=== PATIENT | female | born 1985 | race Asian ===

== ENCOUNTER → 2017-03-17 | Outpatient (CLI) | payer BC | LOC: FIMAGING 11:59 | PROVIDERS: ATTEND Obstetrics & Gynecology | DX: O09.812 Supervision of pregnancy resulting from assisted reproductive technology, second trimester (principal); Z3A.25 25 weeks gestation of pregnancy ==

== ENCOUNTER 2017-06-17 20:01 | Inpatient (IN) | payer BC ==
[2017-06-17] MEDS ORDERED: ACETAMINOPHEN 325 MG TAB PO PRN (21:22)
[2017-06-17] MEDS ORDERED: CALCIUM CARBONATE 500 MG CHEWABLE TAB PO PRN (21:22)
[2017-06-17 22:01] LABS: % IMMATURE GRANULYOCYTES 0.7 % (0.0-1.1); ADD DIFF? NO; ADD MORPH? NO; ADD SCAN? NO; ATYPICAL LYMPHOCYTE FLAG 10 (0-99); FRAGMENT RBC FLAG 10 (0-99); HEMATOCRIT 35.7 % (38.0-47.0); HEMOGLOBIN 12.1 g/dL (12.6-16.3); LEFT SHIFT FLG 0 (0-99); LIPEMIA HEMOLYSIS FLAG 90 (0-99); MEAN CELL HEMOGLOBIN 30.8 pg (27.9-34.1); MEAN CELL HEMOGLOBIN CONCENTR. 33.9 g/dL (32.4-36.7); MEAN CELL VOLUME 90.8 fL (81.5-99.8); MEAN PLATELET VOLUME 9.3 fL (8.7-11.7); PLATELET CLUMPS FLAG 0 (0-99); PLATELET COUNT 298 10^3/uL (150-400); RED BLOOD CELL COUNT 3.93 10^6/uL (4.18-5.33)
[2017-06-17 22:26] LABS: ALANINE AMINOTRANSFERASE 26 IU/L (9-52); ASPARTATE AMINOTRANSFERASE 14 IU/L (14-46); CREATININE 0.5 mg/dL (0.6-1.0); GLOMERULAR FILTRATION RATE > 60; LACTATE DEHYDROGENASE 343 IU/L (313-618); URIC ACID 4.7 mg/dL (2.5-6.8)
[2017-06-17] MEDS ORDERED: OLIVE OIL 118 ML BTL MISC PRN (22:42)
[2017-06-17] MEDS ORDERED: EPSOM SALT 454 GM TP PRN (22:42)
[2017-06-17] MEDS ORDERED: TERBUTALINE SULFATE 1 MG/ML VIAL IV PRN (22:42)
[2017-06-17] MEDS ORDERED: LIDOCAINE 1% 300 MG/30 ML SDV ONE (22:54)
[2017-06-17] MEDS ORDERED: OLIVE OIL 118 ML BTL ONE (22:55)
[2017-06-17] MEDS ORDERED: AMMONIA AROMATIC 1 EACH AMP IH ONE (22:55)
[2017-06-17] MEDS ORDERED: TERBUTALINE SULFATE 1 MG/ML VIAL ONE (22:55)
[2017-06-17] MEDS ORDERED: MISOPROSTOL 200 MCG TAB ONE (22:56)
[2017-06-17] MEDS ORDERED: OXYTOCIN 10 UNIT/ML VIAL ONE (22:56)
[2017-06-17] MEDS ORDERED: PHENYLEPHRINE HCL 100 MCG/ML SYR ONE (23:02)
[2017-06-17] MEDS ORDERED: fentaNYL 2MCG/ML/BUP 0.1% RTU 100 ML BAG EP ONE (23:02)
[2017-06-17] MEDS: LR 1,000 ML IV PRN ×2 (23:02→23:53)
[2017-06-17] MEDS ORDERED: ONDANSETRON 4 MG/2 ML VIAL IVP PRN (23:31)
[2017-06-17] MEDS ORDERED: fentaNYL 2MCG/ML/BUP 0.1% RTU 100 ML EP SCH (23:45)
[2017-06-17] MEDS ORDERED: LR 500 ML IV SCH (23:45)
[2017-06-18] MEDS: OXYTOCIN/RINGERS LACTATE 1,000 ML IV PRN ×2 (04:36→06:29)
--- NOTE | 2017-06-18 05:28 | PDGENHP ---
History and Physical History and Physical: LABOR ADMISSION - HISTORY & PHYSICAL EXAM DATE OF ADMISSION: 06/17/2017 HISTORY OF PRESENT ILLNESS: 31 yo G1 @ 37.6 presented with painful contractions since late afternoon. She denied loss of fluid or decreased movement. She was 1cm/75%/-2 earlier today (in clinic) and had a similar cervical exam upon presentation. She was monitored for a few hours and due to some isolated elevated BPs, PIH labs were obtained. After 2-3 hrs of monitoring cervix was 3cm and less posterior. Epidural was ordered. Once patient was comfortable s/p epidural analgesia her BPs normalized. PIH labs were normal and urine dip showed only trace protein. Patient's is complicated by IVF embryo transfer (on 10-14-16), h/o endometriosis and resultant bilateral salpingectomy ( which led to IVF). course has been otherwise uncomplicated. MEDICAL HISTORY: See HPI, h/o endometriosis, bilateral hydrosalpinx, chronic pelvic pain; Anxiety. CURRENT MEDICATIONS: PNV, Fish Oil SURGICAL HISTORY: [place] teeth extraction; Laparoscopic chromotubation, fulguration of endometriosis, and bilateral salpingectomy (05/2016); IVF embryo transfer (10/14/16) ALLERGIES: None SOCIAL HISTORY: , non-smoker, denies ETOH or illicit drug use during . FAMILY MEDICAL HISTORY: Mother (breast cancer, +BRCA gene) OBSTETRICAL/GYNECOLOGIC HISTORY: See Med/Surg Hx REVIEW OF SYSTEMS: GENERAL: Denies generalized faintness or fatigue HENT: Denies headache, vision changes, sore throat PULM: Denies cough, shortness of breath CV: Denies palpitations, chest pain GI: Denies nausea, vomiting, diarrhea, constipation : Denies dysuria, vaginal bleeding, vaginal discharge, movement MSK: Denies significant swelling in extremities SKIN: Denies rash, or new lesion NEURO: Denies numbness, weakness, tingling PSYCH: Denies significant mood changes PHYSICAL EXAM: VITALS: Reviewed: single isolated systolic BP >140, diastolic BP >80; afebrile GENERAL APPEARANCE: Alert & oriented x 3 HENT: Normocephalic, atraumatic, supple HEART: RRR, no M/R/G LUNGS: CTAB, no wheezes, no rhonchi ABDOMEN: Gravid, non-distended, non-tender PELVIC EXAM: RN performed intake cervical exam ASSESSMENT: 140s, Cat I TOCO: Reg ctx q 2 min PLACENTA: Posterior, Grade 2 Placenta LABS: O+ / Antibody Screen Negative / Rubella Low Immune / GBS Negative / HBsAg Negative / HIV Negative / CF Neg, Frag X Neg, SMA Positive ( Neg) / cfDNA (Neg 12/10/16) / 1Hr GTT 121 ASSESSMENT: 31 yo G1 female @ 37.6 weeks in labor. PLAN: 1. Labor - s/p epidural, expectant management, monitor labor progress. 2. Rubella Low Immunity: PP MMR Vaccine
[2017-06-18] MEDS: PHENYLEPHRINE HCL 100 MCG/ML SYR IVP PRN ×6 (06:14→06:56)
[2017-06-18] MEDS: LR 1,000 ML IV PRN (06:15)
--- NOTE | 2017-06-18 06:52 | SOAPPROG ---
SOAP Progress Note Assessment/Plan: Assessment: Plan: Subjective: I was called in to assist dr haley with a vaginal repair. when I arrived the patient was comfortable with an epidural. I assessed the vagina. Bilateral vaginal sulcus lacerations were noted and a second degree. this was repaired with 3-0 vicryl bilateral periurethral lacerations were noted. A red rubber catheter was placed to clearly identify the urethra. repair of lacerations was done. patient is slightly hypotensive and received phenylephrine. will check a h and h. bleeding is minimal. fundus is firm. will monitor patient closely. Objective: Laboratory Results 06/17/17 21:25 06/17/17 21:25 ICD10 Worksheet Patient Problems: Problems Problem Status Onset High vaginal laceration during and after labor Acute Obstetric vaginal laceration Acute (spontaneous vaginal delivery) Acute
[2017-06-18] MEDS ORDERED: SIMETHICONE 80 MG TAB CHEW PO PRN (06:56)
[2017-06-18] MEDS ORDERED: HYDROCORTISONE 0.5% CREAM TP PRN (06:56)
[2017-06-18] MEDS ORDERED: OXYTOCIN/RINGERS LACTATE 1,000 ML IV SCH (07:00)
--- NOTE | 2017-06-18 07:08 | OBDEL ---
Info Type: Vaginal Presentation at Delivery: Vertex L&D Analgesia/Anesthesia Type: Epidural GBS+: No Intrapartum Medications: Generic Name Dose Route Start Last Admin Trade Name Freq PRN Reason Stop Dose Admin Acetaminophen 650 mg 06/17/17 21:22 06/17/17 21:45 Tylenol PO 12/14/17 21:21 650 mg Q4HRS PRN Administration Pain, Mild/Fever, Can Take PO Lactated Ringer's 1,000 mls @ 0 mls/hr 06/17/17 22:42 06/18/17 06:15 Lr IV 12/14/17 22:41 1,000 mls PRN PRN Administration SEE PROTOCOL CONDITIONS Protocol Per Protocol Phenylephrine HCl 100 mcg 06/17/17 23:31 06/18/17 06:56 Neosynephrine IVP 12/14/17 23:30 100 mcg .Q2M PRN Administration Hypotension Discontinued Medications Generic Name Dose Route Start Last Admin Trade Name Freq PRN Reason Stop Dose Admin Oxytocin/Lactated Ringer's 1,000 mls @ 150 mls/hr 06/17/17 22:42 06/18/17 06: 29 Pitocin 20 Units/Lr (Premix) IV 1,000 mls PRN PRN Administration Post- bleeding - Hospital Course Intrapartum: 06/18/17 07:05 Patient was admitted with active labor in evening of 06/17/17. She received epidural analgesia and rested through the night. I was called 3:44AM by RN and told that patient was 10cm dilated and 2+ station. I came to hospital to attend expected delivery. Indications for Delivery: Spontaneous Labor Vaginal Delivery - Delivery Provider Delivery Physician/CNM: Sam López - Labor and Delivery Onset of Contractions Date: 06/17/17 Onset of Contractions Time: 18:30 Rupture of Membranes Type: Spontaneous (during 2nd stage) Amniotic Fluid Color: Clear Laceration: 2nd Degree Repair: 3-0, Vicryl Vaginal Sponge Count Correct: Yes Vaginal Needle Count Correct: Yes Vaginal Sweep Performed: Yes EBL: 800 Delivery Events: Other (Specify) (Significant blood loss during complicated bilateral vaginal sulcus repair, Dr. Monserrat Salvador was called to assist during repair.) Delivery Comment: Spontaneous vaginal delivery of viable male . Apgars 9 @ 1 min, 9 @ 5 min. Baby weight: pending. Infant delivered @ 4:31AM, [place], no nuchal cord, no excessive pressure or difficulty with delivery of anterior or posterior shoulder. Baby was placed on mom's chest. After one minute cord was clamped and cut. 3-vessel cord noted. Placenta delivered @ 4:36AM intact and complete. 2nd degree vaginal laceration, bilateral deep sulcus lacerations, and bilateral periurethral lacerations noted. Dr. Monserrat Salvador was called to assist with repair of bilateral sulcus lacerations. EBL was 800 mL, with most of this blood loss thought to be from vaginal lacerations. IV Pitocin 20U was given after delivery of placenta and uterine fundus firmed up quickly and remained firm. Patient was hypotensive s/p vaginal repair. Aggressive IV fluid hydration given, additional IV access obtained, and stat H&H ordered. Patient's BP increased with these measures, but her hemodynamic status will be monitored closely. - Medications Labor Augmentation/Induction Methods Used: None ICD10 Worksheet Patient Problems: Problems Problem Status Onset High vaginal laceration during and after labor Acute Obstetric vaginal laceration Acute (spontaneous vaginal delivery) Acute - ICD10 Problem Qualifiers (1) (spontaneous vaginal delivery) (2) High vaginal laceration during and after labor (3) Obstetric vaginal laceration
[2017-06-18 07:31] LABS: HEMATOCRIT 27.7 % (38.0-47.0); HEMOGLOBIN 9.3 g/dL (12.6-16.3)
[2017-06-18] MEDS ORDERED: MEASLES,MUMPS&RUBELLA VACC/PF 0.5 ML VIAL SC ONE (07:34)
--- NOTE | 2017-06-18 08:49 | OBPP ---
Progress Note Assessment/Plan: Assessment: 1) s/p with PPH secondary to sulcal tears PPD # 0 - pt is stable 2) Anemia 3) HOTN Plan: Continue routine pp care Pt is unable to sit up at this time, BP dropped down to 80/40s - she moved too quickly s/p 4000 L IVFs Edward to be put back in, pt is still too numb and weak and is not getting up any time soon Will hold off on blood transfusion at this time and see how pt does H/H 06/24 Will start iron in am 06/1906/18/17 08:50 Subjective/ Course: Pt seen and examined. She states she feels much better than before. She attempted to sit up and felt lightheaded. She tolerated breakfast. Denies any CP or SOB. Mod lochia. Denies any pain. 06/18/17 08:47 Objective: 06/18/17 07:10 06/17/17 21:25 Patient ABO/Rh O POSITIVE 06/17/17 21:25 Uric Acid 4.7 mg/dL (2.5-6.8) 06/17/17 21:25 AST 14 IU/L (14-46) 06/17/17 21:25 ALT 26 IU/L (9-52) 06/17/17 21:25 Lactate Dehydrogenase 343 IU/L (313-618) 06/17/17 21:25 Uterine Position/Fundal Height: Umbilicus -2 Uterine Tone: Firm Physical Exam - Physical Exam Respiratory: lungs clear, normal breath sounds Cardiac/Chest: regular rate, rhythm Abdomen: normal bowel sounds, non-tender, soft Extremities: non-tender, normal inspection Skin: warm/dry, pallor Neuro/Psych: alert, normal mood/affect, oriented x 3
[2017-06-18] MEDS: IBUPROFEN 600 MG TAB PO PRN ×3 (08:57→20:53)
[2017-06-18] MEDS: FERROUS SULFATE 325 MG TAB PO SCH (08:57)
[2017-06-18] MEDS: DOCUSATE SODIUM 100 MG CAP PO PRN ×2 (08:57→20:53)
[2017-06-18] MEDS: HYDROCODONE/APAP 5/325 TAB PO PRN ×4 (13:47→22:00)
[2017-06-18] MEDS: PRENATAL VIT 1 EACH TAB PO SCH (22:08)
[2017-06-19] MEDS: HYDROCODONE/APAP 5/325 TAB PO PRN ×6 (02:10→22:12)
[2017-06-19] MEDS: IBUPROFEN 600 MG TAB PO PRN ×4 (03:14→23:42)
--- NOTE | 2017-06-19 09:22 | POSTANESTH ---
Post Anesthetic Evaluation Cardiovascular Status: Normal, Stable Respiratory Status: Normal, Stable Level of Consciousness/Mental Status: Can Participate in Eval, Alert and Oriented Pain Control: Adequate, Prn Tx Ordered (PLACENTA DELIVERY TIME 06/18/17 @ 04:36 - is Epidural End Time)
[2017-06-19] MEDS: PRENATAL VIT 1 EACH TAB PO SCH ×2 (09:33→09:34)
[2017-06-19] MEDS: FERROUS SULFATE 325 MG TAB PO SCH ×3 (09:33→21:36)
[2017-06-19] MEDS: DOCUSATE SODIUM 100 MG CAP PO PRN ×2 (09:33→21:36)
--- NOTE | 2017-06-19 17:23 | OBPP ---
Progress Note Assessment/Plan: Assessment: 31 yo PPD s/p vaginal delivery. Delivery complicated by bilateral vaginal sulci tears and significant blood loss. Patient is fatigued, in bed and still has Edward anchored. Plan: Routine PP care. Advance diet and activity. DC Edward. Monitor closely for signs of orthostatic hypotension with acute blood loss anemia. Repeat H&H tomorrow. Consider transfusion if patient remains symptomatic. 06/19/17 17:19 Subjective/ Course: Pt seen and examined. She states she feels much better than before. She attempted to sit up and felt lightheaded. She tolerated breakfast. Denies any CP or SOB. Mod lochia. Denies any pain. 06/18/17 08:47 06/19/17 17:23 Patient is in bed with Edward anchored. She has been up to shower. She felt faint when in shower, but did not fall and denies any LOC. She reports minimal lochia. Pain is controlled. She is . Objective: 06/19/17 06:30 06/17/17 21:25 Patient ABO/Rh O POSITIVE 06/17/17 21:25 Uric Acid 4.7 mg/dL (2.5-6.8) 06/17/17 21:25 AST 14 IU/L (14-46) 06/17/17 21:25 ALT 26 IU/L (9-52) 06/17/17 21:25 Lactate Dehydrogenase 343 IU/L (313-618) 06/17/17 21:25 Temp Pulse Resp BP Pulse Ox 36.6 C 98 16 109/67 96 06/19/17 08:00 06/19/17 08:00 06/19/17 08:00 06/19/17 08:00 06/19/17 04:30 Uterine Position/Fundal Height: Umbilicus -1 Uterine Tone: Firm
[2017-06-20] MEDS: HYDROCODONE/APAP 5/325 TAB PO PRN ×6 (02:36→21:48)
[2017-06-20] MEDS: IBUPROFEN 600 MG TAB PO PRN ×3 (06:10→19:53)
[2017-06-20] MEDS: FERROUS SULFATE 325 MG TAB PO SCH ×2 (09:55→19:53)
[2017-06-20] MEDS: DOCUSATE SODIUM 100 MG CAP PO PRN ×2 (09:55→17:40)
--- NOTE | 2017-06-20 10:31 | OBPP ---
Progress Note Assessment/Plan: Assessment: 1) s/p with PPH PPD # 2 - pt is stable 2) Anemia - symptomatic Plan: Recommend transfusion secondary to being symptomatic and too weak to feed baby Blood consents obtained; pt understands all risks and wants to proceed Will transfuse 2 units Check H/H in am 06/21 Continue routine pp care Plan for d/c home in am 06/2106/20/17 10:27 Subjective/ Course: Pt seen and examined. She states she feels much better than before. She attempted to sit up and felt lightheaded. She tolerated breakfast. Denies any CP or SOB. Mod lochia. Denies any pain. 06/18/17 08:47 06/19/17 17:23 Patient is in bed with Edward anchored. She has been up to shower. She felt faint when in shower, but did not fall and denies any LOC. She reports minimal lochia. Pain is controlled. She is . 06/20/17 10:29 Pt seen and examined. Pt is c/o feeling weak and is lightheaded when OOB. Also notes SOB. Some soreness down below, but relief with [place]. Mod lochia. She is pumping and using donor milk, "too weak to breastfeed." Tolerating regular diet , voiding without difficulty, passing flatus. No BM. Objective: 06/20/17 04:00 06/17/17 21:25 Patient ABO/Rh O POSITIVE 06/17/17 21:25 Uric Acid 4.7 mg/dL (2.5-6.8) 06/17/17 21:25 AST 14 IU/L (14-46) 06/17/17 21:25 ALT 26 IU/L (9-52) 06/17/17 21:25 Lactate Dehydrogenase 343 IU/L (313-618) 06/17/17 21:25 Temp Pulse Resp BP Pulse Ox 36.3 C 88 16 110/76 95 06/19/17 21:42 06/19/17 21:42 06/19/17 21:42 06/19/17 21:42 06/19/17 21:42 Uterine Position/Fundal Height: Umbilicus -2 Uterine Tone: Firm Physical Exam - Physical Exam Respiratory: lungs clear, normal breath sounds Cardiac/Chest: regular rate, rhythm Abdomen: normal bowel sounds, non-tender, soft, flatus (+), other (Pelvic-no vulvar edema; lacs healing well) Extremities: non-tender, normal inspection Skin: warm/dry, pallor Neuro/Psych: alert, normal mood/affect, oriented x 3
[2017-06-20] MEDS ORDERED: LIDOCAINE 1% 2 ML INJ ONE (16:03)
[2017-06-21] MEDS: IBUPROFEN 600 MG TAB PO PRN (03:19)
[2017-06-21] MEDS: HYDROCODONE/APAP 5/325 TAB PO PRN ×3 (03:19→11:26)
[2017-06-21] MEDS: PRENATAL VIT 1 EACH TAB PO SCH (07:35)
[2017-06-21] MEDS: DOCUSATE SODIUM 100 MG CAP PO PRN (07:35)
[2017-06-21] MEDS: FERROUS SULFATE 325 MG TAB PO SCH (07:35)
[2017-06-21 12:00] VITALS: BP 108/63; PULSE 89; RESP 18; TEMP 98.7; O2SAT 95
--- NOTE | 2017-06-21 12:33 | OBGCSDC ---
General Delivery Information - General Info : 1 Para: 1 Abortions: 0 Type: Vaginal L&D Analgesia/Anesthesia Type: Epidural Admission Date: 06/17/17 Labs: Patient ABO/Rh O POSITIVE 06/17/17 21:25 Hct 27.3 % (38.0-47.0) L 06/21/17 06:30 - Hospital Course Intrapartum: 06/18/17 07:05 Patient was admitted with active labor in evening of 06/17/17. She received epidural analgesia and rested through the night. I was called 3:44AM by RN and told that patient was 10cm dilated and 2+ station. I came to hospital to attend expected delivery. : Pt seen and examined. She states she feels much better than before. She attempted to sit up and felt lightheaded. She tolerated breakfast. Denies any CP or SOB. Mod lochia. Denies any pain. 06/18/17 08:47 06/19/17 17:23 Patient is in bed with Edward anchored. She has been up to shower. She felt faint when in shower, but did not fall and denies any LOC. She reports minimal lochia. Pain is controlled. She is . 06/20/17 10:29 Pt seen and examined. Pt is c/o feeling weak and is lightheaded when OOB. Also notes SOB. Some soreness down below, but relief with [place]. Mod lochia. She is pumping and using donor milk, "too weak to breastfeed." Tolerating regular diet , voiding without difficulty, passing flatus. No BM. 06/21/17 12:26 Vanessa reports that she feels significantly better s/p transfusion of 2PRBCs. She denies symptoms of transfusion reaction or symptomatic anemia. She is ambulating, passing flatus, tolerating regular diet, denies significant lochia. She remains concerned that her is not being feed adequately with her attempts. She desires discharge home today if possible. Exam: VSS Gen: Awake, Alert and Oriented x 3 HENT: atraumatic, normocephalic Heart: RRR, no m/r/g Lungs: CTAB Abdomen: soft, nontender, fundus firm and below umbilicus by 2 cm Extremities: no excessive edema Labs: Hct 21-> 21-> 2uPRBC (06/20/17) -> 27 (06/21/17) A/P: 31 yo female PPD#3 s/p c/b excessive bleeding/PPH from vaginal lacerations during repair. 1. Dispo: DC Home 2. PPH/Symptomatic Anemia: Resolved s/p transfusion 3. F/u 4&6 weeks Vaginal - Delivery Provider Delivery Physician/CNM: Sam López - Diagnosis Labor: Spontaneous Rupture of Membranes Type: Spontaneous (during 2nd stage) Amniotic Fluid Color: Clear Laceration: 2nd Degree Repair: 3-0, Vicryl Delivery Events: Other (Specify) (Significant blood loss during complicated bilateral vaginal sulcus repair, Dr. Monserrat Salvador was called to assist during repair.) - Delivery EBL: [address] [place] [address] [place] Delivery Date: 06/18/17 Delivery Time: 04:31 JEAN: 07/02/17 Gestational Age: 38 week(s) and 3 day(s) Sex of : Male Weight (gm): 2860 g Score (1 Min): 9 Score (5 Min): 9 Discharge Information - Discharge Information Prescriptions: Hydrocodone/APAP 5/325 [[place] 5/325 (*)] 1 - 2 tab PO Q4HRS PRN 14 Days #30 tab PRN Reason: Pain, Moderate Ibuprofen [Motrin (*)] 600 mg PO Q6HRS PRN 30 Days #40 tab PRN Reason: post , inflammation Docusate Sodium [Colace 100 MG (*)] 100 mg PO BID PRN 30 Days #60 cap PRN Reason: Constipation Ferrous Sulfate [Ferrous Sulf 325 MG (*)] 325 mg PO BID 30 Days #60 tab Condition: Good Instruction/Follow Up: Four Weeks, Six Weeks
== END 2017-06-21 14:03 | disposition home or self-care (01) | DRG 774 ==
LOC: FLD 20:01 → OBSVTOIN 20:01 → FOB 06-18 15:22
PROVIDERS: ADMIT Obstetrics & Gynecology Gynecology; ATTEND Obstetrics & Gynecology Gynecology
PROC: 0UQG7ZZ Repair Vagina, Via Natural or Artificial Opening (ICD-10-PCS; principal; 2017-06-18)
PROC: 10E0XZZ Delivery of Products of Conception, External Approach (ICD-10-PCS; principal; 2017-06-18)
PROC: 0KQM0ZZ Repair Perineum Muscle, Open Approach (ICD-10-PCS; principal; 2017-06-18)
PROC: 30233N1 Transfusion of Nonautologous Red Blood Cells into Peripheral Vein, Percutaneous Approach (ICD-10-PCS; 2017-06-20)
DX: O71.4 Obstetric high vaginal laceration alone (principal); O70.1 Second degree perineal laceration during delivery; O71.82 Other specified trauma to perineum and vulva; O67.8 Other intrapartum hemorrhage; O90.81 Anemia of the puerperium; D62 Acute posthemorrhagic anemia; Z3A.38 38 weeks gestation of pregnancy; Z37.0 Single live birth; O09.813 Supervision of pregnancy resulting from assisted reproductive technology, third trimester
CPT/HCPCS: J1200; J2370; J2405; J2590; J3105; P9016